=== PATIENT | male | born 1995 | race Caucasian/White ===

== ENCOUNTER 2018-09-15 09:25 | Emergency (ER) | payer MEDICAID, SELFPAY ==
[~2018-09-15] VITALS: Ht 180.3 cm; Wt 88.4 kg
[2018-09-15] MEDS ORDERED: ONDANSETRON ODT 4 MG PO PRN (11:00)
[2018-09-15] MEDS ORDERED: ONDANSETRON ODT 4 MG ONE (11:10)
[2018-09-15 11:21] VITALS: BP 112/69
== END 2018-09-15 11:24 | disposition home or self-care (01) ==
LOC: ED 11:12
DX: R19.7 Diarrhea, unspecified (principal); R11.2 Nausea with vomiting, unspecified; R10.9 Unspecified abdominal pain; F17.200 Nicotine dependence, unspecified, uncomplicated
CPT/HCPCS: 99283